=== PATIENT | male | born 1965 | race Asian ===

== ENCOUNTER → 2024-07-07 | Outpatient (CLI) | payer BC ==
--- NOTE | 2024-07-07 12:13 | BD ---
EXAMINATION TYPE: Axial Bone Density DATE OF EXAM: 07/07/2024 CLINICAL HISTORY: 59 years old Male. ICD-10 CODE: R29.890 LOSS OF HEIGHT , Additional History: Height: Weight: FRAX RISK QUESTIONS: Family History (Parent hip fracture): yes History of Fracture in Adulthood: yes Secondary Osteoporosis: yes 1. Type 1 Diabetes: yes 5. Chronic liver disease: liver ca Current Tobacco Use: previous smoker RISK FACTORS height loss, liver ca, surgeries only, whipple surg long ago, diabetic insulin dependent HISTORY OF: History of Wrist Fracture: rt hand and wrist MEDICATIONS: bp meds, calcium and vit d EXAM MEASUREMENTS: Bone mineral densitometry was performed using the [employer] System. Bone mineral density as measured about the Lumbar spine is: ----- L1-L4(G/cm2): 1.155 T Score Values are as follows: ----- L1: -0.3 ----- L2: -1.1 ----- L3: 0.0 ----- L4: 0.3 ----- L1-L4: -0.2 Z Score Values are as follows: ----- L1: -0.8 ----- L2: -1.6 ----- L3: -0.6 ----- L4: -0.3 ----- L1-L4: -0.7 Bone mineral density is a baseline study for him today. Bone mineral density about the R hip (g/cm2): 1.006 Bone mineral density about the L hip (g/cm2): 1.047 T Score values are as follows: -----R Neck: -0.6 -----L Neck: -0.2 -----R Total: 0.0 -----L Total: 0.3 Z Score values are as follows: -----R Neck: -0.4 -----L Neck: 0.1 -----R Total: -0.5 -----L Total: -0.3 Bone mineral density is his first dexxa study, baseline. FRAX%s: The graph provided illustrates a 9.5% chance for a major osteoporotic fx and a 0.4% chance fo r the hips probability for fx in 10 years time. IMPRESSION: Osteopenia (T Score between -2.5 and -1). There is slightly increased risk of fracture and the patient may be considered for treatment. Re-Screen 2-5 years. NOTE: T-SCORE=SD OF THE YOUNG ADULT MEAN. [facility], , 07/07/2024 12:11 PM
== END | disposition home or self-care (01) ==
LOC: RADBDWWP 08:40
PROVIDERS: ATTEND Internal Medicine
DX: M85.89 Other specified disorders of bone density and structure, multiple sites (principal); R29.890 Loss of height
CPT/HCPCS: 77080